=== PATIENT | female | born 1990 | race Two or more races ===

== ENCOUNTER → 2017-03-28 | Outpatient (REF) | payer OTHER ==
[2017-03-28 18:18] LABS: BASO % 0.7 % (0.0-1.0); EOS # 0.1 10^3/uL (0.0-0.50); EOS % 1.1 % (0.0-3.0); IMMATURE GRANULOCYTE % 0.2 % (0-0); LYMPH # 1.8 10^3/uL (1.5-6.5); LYMPH % 32.4 % (24.0-44.0); MEAN CORPUSCULAR HEMOGLOBIN 32.2 pg (27.0-33.0); MEAN CORPUSCULAR HGB CONC 33.6 g/dl (32.0-36.5); MEAN CORPUSCULAR VOLUME 95.9 fl (80.0-96.0); MONO # 0.5 10^3/uL (0.0-0.8); MONO % 8.2 % (0.0-5.0); NEUTROPHILS # 3.2 10^3/uL (1.8-7.7); NEUTROPHILS % 57.4 % (36.0-66.0); PLATELET COUNT, AUTOMATED 236 10^3/uL (150-450); RED CELL DISTRIBUTION WIDTH 12.8 % (11.5-14.5); WHITE BLOOD COUNT 5.6 10^3/uL (4.0-10.0)
[2017-03-28 19:02] LABS: ALBUMIN/GLOBULIN RATIO 1.38 (1.00-1.93); ALKALINE PHOSPHATASE 44 U/L (45-117); ALT/SGPT 24 U/L (12-78); ANION GAP 8 MEQ/L (8-16); AST/SGOT 17 U/L (7-37); BILIRUBIN,TOTAL 0.5 MG/DL (0.2-1.0); BLOOD UREA NITROGEN 10 MG/DL (7-18); CALCIUM LEVEL 8.6 MG/DL (8.5-10.1); CARBON DIOXIDE LEVEL 27 MEQ/L (21-32); CHLORIDE LEVEL 106 MEQ/L (98-107); CREATININE FOR GFR 0.69 MG/DL (0.55-1.02); FREE T4 1.08 NG/DL (0.76-1.46); GLOMERULAR FILTRATION RATE > 60.0 (>60); GLUCOSE, FASTING 76 MG/DL (70-105); SODIUM LEVEL 141 MEQ/L (136-145); TOTAL PROTEIN 6.9 GM/DL (6.4-8.2)
== END ==
LOC: M SFHCLERA 12:13
PROVIDERS: ATTEND Family Medicine
DX: R63.4 Abnormal weight loss (principal)

== ENCOUNTER → 2017-06-24 | Outpatient (REF) | payer OTHER ==
[2017-06-24 20:40] LABS: CONTROL LINE HCG INT CTR LINE PRESENT; HCG, SERUM QUALITATIVE NEGATIVE (NEGATIVE)
== END ==
LOC: M SFHCLERA 14:56
DX: N92.6 Irregular menstruation, unspecified (principal)

== ENCOUNTER → 2017-09-25 | Outpatient (REF) | payer OTHER | LOC: M SFHCLERA 12:27 | DX: R11.10 Vomiting, unspecified (principal) ==

== ENCOUNTER → 2017-09-26 | Outpatient (CLI) | payer OTHER | LOC: M LAB 10:38 | DX: Z11.59 Encounter for screening for other viral diseases (principal) | CPT/HCPCS: 36415 ==

== ENCOUNTER → 2018-01-14 | Outpatient (CLI) | payer OTHER | LOC: M RAD 16:20 | DX: C34.82 Malignant neoplasm of overlapping sites of left bronchus and lung (principal) ==